=== PATIENT | male | born 1960 | race Caucasian/White ===

== ENCOUNTER 2016-04-06 10:20 | Emergency (ER) | payer OTHER ==
[~2016-04-06] VITALS: Ht 172.7 cm; Wt 81.7 kg
[~2016-04-06 10:20] MED LIST: ALPRAZOLAM; APAP500 PO; ASPIRIN325 PO; BENADRYL25 MG PO; CARVEDILOL3.125 MG PO; CIPRO; CIPROFLOXACIN500 M1 PO; CLARITIN-D 24 H1 TAB PO; CRESTOR20 MG PO; CYCLOBENZAPRINE5 MG PO; DARVOCET A5001 EAC1 PO; DENIES ANY MEDS; DIFLUCAN150 MG PO; DOXYCYCLINE 10100 MG PO; FLAGYL500 MG PO; FLEXERIL PO; FLONASE 0.05%50 MCG NASAL; GLUCOPHAGE500 MG PO; HYDROCODONE; IBUPROFEN 800800 M1 PO; JANUVIA100 MG PO; LIPITOR; LIPITOR20 MG PO; LISINOPRIL5 MG PO; LOPRESSOR; METFORMIN; MICONAZOLE NITR45 G1 TP; MOBIC15 MG PO; NITROSTAT0.4 MG; NORCO 5-325 TA1 EACH PO; OXYCODONE HCL10 MG PO; PENICILLIN VK250 MG PO; PERCOCET 10-321 EACH PO; PERCOCET 5-3251 EACH PO; PLAVIX 75 MG TA75 MG PO; PREDNISONE 20 M20 MG PO; PREDNISONE50 MG PO; PROVENTIL HFA6.7 G1 INH; SEPTRA DS TABL1 EACH PO; SYMBICORT160 MCG/4.; TOPROL XL25 MG PO; TRAMADOL 50 MG50 MG PO; VICODIN 5-5001 EACH PO; VISTARIL 25 MG25 M1 PO; XANAX PO; [UNRECOGNIZED DRUG - REMARK]
[2016-04-06] MEDS ORDERED: VISTARIL 25 MG25 M1 PO (11:34)
[2016-04-06 11:52] VITALS: BP 122/82
[2016-05-06] MEDS ORDERED: OXYCONTIN20 M1 PO (12:51)
[2016-05-06] MEDS ORDERED: METHADOSE10 MG PO (12:51)
== END 2016-04-06 16:11 | disposition home or self-care (01) ==
LOC: ER 10:20
DX: F15.20 Other stimulant dependence, uncomplicated (principal); F17.210 Nicotine dependence, cigarettes, uncomplicated; I25.2 Old myocardial infarction; E11.9 Type 2 diabetes mellitus without complications; J44.9 Chronic obstructive pulmonary disease, unspecified; Z95.9 Presence of cardiac and vascular implant and graft, unspecified

== ENCOUNTER 2016-08-01 00:05 | Emergency (ER) | payer OTHER ==
[~2016-08-01] VITALS: Ht 165.1 cm; Wt 83.9 kg
[2016-08-01 00:05] VITALS: BP 155/88
[~2016-08-01 00:05] MED LIST changes: +ASPIRIN81 M2 PO; +LOPRESSOR50 PO; +METFORMIN HCL500 MG PO; +METHADOSE10 MG PO; +OXYCONTIN10 M1 PO; +OXYCONTIN20 M1 PO; +PAXIL10 MG PO; +XANAX 0.5 MG0.5 MG PO
== END 2016-08-01 00:40 | disposition home or self-care (01) ==
LOC: ER 00:05
DX: R07.81 Pleurodynia (principal); E11.9 Type 2 diabetes mellitus without complications; J44.9 Chronic obstructive pulmonary disease, unspecified; I25.2 Old myocardial infarction; Z95.5 Presence of coronary angioplasty implant and graft; F17.210 Nicotine dependence, cigarettes, uncomplicated; F10.99 Alcohol use, unspecified with unspecified alcohol-induced disorder; Z87.898 Personal history of other specified conditions

== ENCOUNTER 2016-08-03 12:39 | Emergency (ER) | payer OTHER ==
[~2016-08-03] VITALS: Ht 165.1 cm; Wt 70.3 kg
--- NOTE | ~2016-08-03 | EKG ---
[place] [address] [facility] [place] [address] ELECTROCARDIOGRAM REPORT Name: EVELYN MANZO Room #: DEP Terrance#: [id number] Admission: 08/03/16 Attend Phys: Discharge: 08/03/16 Date of : 62 Report #: [id number] THIS REPORT FOR: //name// [facility] ED Test Date: 2016-08-03 Test Time: 13:20:07 Pat Name: EVELYN MANZO Department: Room: Gender: Sheep Shearer: MZOOK : 1960 Requested By: Kurt Victoria Order Number: [id number] MD: Kevin Cortes Measurements Intervals [place] Rate: 79 P: 67 MI: 111 QRS: 12 QRSD: 92 T: 21 QT: 390 QTc: 448 Interpretive Statements Sinus rhythm Borderline short MI interval Consider right atrial enlargement Consider right ventricular hypertrophy Inferior infarct, old Electronically Signed On 08-03-2016 16:57:49 CDT by Kevin Cortes [email or web address] <ELECTRONICALLY SIGNED> By: Kevin Cortes MD 08/03/16 1657 1320 1320 MD CARLOS Lancaster
[2016-08-03 13:17] LABS: ABSOLUTE NEUTROPHILS 7.4 thou/uL (1.4-8.2); BASOPHILS 0.9 % (0.0-2.0); HEMATOCRIT 42.6 % (42.0-52.0); HEMOGLOBIN 14.9 gm/dL (14.0-18.0); LYMPHOCYTES 27.7 % (24.0-44.0); MANUAL DIFF NO; MCH 30.4 pg (26.0-34.0); MCHC 34.9 g/dL (28.0-37.0); MCV 87.1 fL (80.0-100.0); MONOCYTES 6.9 % (1.0-8.0); PLATELET COUNT 207 thou/uL (150-400); POLYS 63.5 % (36.0-66.0); RBC 4.89 mil/uL (4.50-6.00); RDW 13.7 % (10.5-14.5); WBC 11.6 thou/uL (4.0-11.0)
[2016-08-03 13:46] LABS: ANION GAP 9 mmol/L (7-16); BUN 11 mg/dL (7-18); CALCIUM 8.4 mg/dL (8.5-10.1); CHLORIDE 102 mmol/L (98-107); CO2 25 mmol/L (21-32); CREATININE 0.9 mg/dL (0.7-1.3); GLUCOSE 143 mg/dL (74-106); POTASSIUM 4.1 mmol/L (3.5-5.1); SODIUM 136 mmol/L (136-145)
[2016-08-03 14:03] LABS: ALBUMIN 3.5 g/dL (3.4-5.0); ALKALINE PHOSPHATASE 71 U/L (46-116); CK-MB MASS 2.9 ng/mL (<0.5-3.6); MAGNESIUM 1.8 mg/dL (1.8-2.4); NT-PRO BRAIN NAT PEPTIDE 56 pg/mL (<300); SALICYLATE < 2.8 mg/dL (2.8-20.0); SGOT 29 U/L (15-37); SGPT 36 U/L (30-65); TOTAL BILIRUBIN 0.7 mg/dL (<0.1-1.0); TOTAL PROTEIN 6.6 g/dL (6.4-8.2); TROPONIN-I < 0.04 ng/mL (<0.04-0.07)
[2016-08-03 14:15] LABS: ACETAMINOPHEN < 2 ug/mL (10-30)
[2016-08-03 14:20] VITALS: BP 152/96
== END 2016-08-03 14:52 | disposition home or self-care (01) ==
LOC: ER 12:39
PROVIDERS: Emergency Medicine
DX: R55 Syncope and collapse (principal); G89.29 Other chronic pain; M54.2 Cervicalgia; M54.9 Dorsalgia, unspecified; R51 Headache; I25.2 Old myocardial infarction; E11.9 Type 2 diabetes mellitus without complications; J44.9 Chronic obstructive pulmonary disease, unspecified; F17.210 Nicotine dependence, cigarettes, uncomplicated